=== PATIENT | male | born 2000 | race Caucasian/White ===

== ENCOUNTER 2021-07-04 12:36 | Emergency (ER) | payer OTHER ==
[2021-07-04 12:42] VITALS: BP 116/72
--- NOTE | 2021-07-04 13:14 | ED Physician Documentation ---
History of Present Illness - Stated complaint Stated Complaint: SOA,HEADACHE,COUGH - Chief complaint Chief Complaint: Resp - History obtained from History obtained from: Patient - Additonal information Additional information: 5 days illness with B ear pain, increased when swallowing, sore throat. Recent exposure to covid, roommate sick with this. Has non-productive cough. Review of Systems Constitutional: reports: Chills. denies: Myalgias Ears: reports: Ear pain Nose: reports: Rhinorrhea / runny nose Throat: reports: Sore throat Respiratory: reports: Cough. denies: Dyspnea PD PAST MEDICAL HISTORY - Present Medications Home Medications: Ambulatory Orders Medication Instructions Recorded Confirmed Albuterol Sulf [Ventolin Hfa 1 - 2 puffs INH Q4HR PRN #1 inhaler 07/04/21 Inhaler] guaiFENesin/CODEINE [Robitussin AC] 5 - 10 ml PO Q6H PRN #120 ml 07/04/21 PD ED PE NORMAL - Vitals Vital signs reviewed: Yes - General General: Alert and oriented X 3, No acute distress - HEENT HEENT: PERRL, EOMI, Pharynx benign, Other (Mild L conjunctivitis and mild L TM redness without effusion) - Neck Neck: Supple, no meningeal sign, No bony TTP - Cardiac Cardiac: RRR, No murmur - Respiratory Respiratory: No respiratory distress, Clear bilaterally - Abdomen Abdomen: Non tender - Back Back: No CVA TTP, No spinal TTP - Derm Derm: Normal color, Warm and dry - Extremities Extremities: No edema, No calf tenderness / cord - Neuro Neuro: Alert and oriented X 3, Normal speech Results - Vitals Vitals: Vital Signs - 24 hr 07/04/21 12:38 Temperature 36.7 C Heart Rate 84 Respiratory 18 Rate Blood Pressure 116/72 O2 Saturation 97 Oxygen O2 Source Room air PD MEDICAL DECISION MAKING - ED course ED course: 21-year-old gentleman with viral syndrome, has mild left-sided conjunctivitis and mild left TM redness without effusion. This is most consistent with adenovirus. He has been exposed to Covid though. Either way the syndrome is viral and he is treated symptomatically and tested for COVID. Departure - Departure Disposition: 01 Home, Self Care Clinical Impression: Upper respiratory tract infection Condition: Good Record reviewed to determine appropriate education?: Yes Instructions: ED Viral Syndrome Prescriptions: Albuterol Sulf [Ventolin Hfa Inhaler] 1 - 2 puffs INH Q4HR PRN #1 inhaler PRN Reason: Shortness Of Air/Wheezing guaiFENesin/CODEINE [Robitussin AC] 5 - 10 ml PO Q6H PRN #120 ml PRN Reason: Cough Comments: As discussed, based on your symptoms and physical findings I suspect you have adenovirus as opposed to Covid. I [facility] for albuterol inhaler [facility]. You have a Covid test pending. You need to self quarantine until the result is done and negative. Do not leave your house. Do not get near anybody. The results should be done in 48 to 72 hours. We will call with a positive result, the fastest way to get a negative result for confirmation though is to go to the hospital website at [email or web address], click on the my [facility] tab and sign up for the patient portal. If any friends or family get sick and would like to have a Covid test done, but do not have signs or symptoms that would necessitate being hospitalized, there are multiple local options for Covid testing. [facility] keeps an updated list of testing and vaccination options at: [email or web address].
== END 2021-07-04 13:34 | disposition home or self-care (01) ==
LOC: ED 12:36
DX: J06.9 Acute upper respiratory infection, unspecified (principal); Z20.822 Contact with and (suspected) exposure to COVID-19
CPT/HCPCS: 99282; 99283

== ENCOUNTER 2023-03-27 20:23 | Emergency (ER) | payer OTHER ==
[2023-03-27 20:34] VITALS: BP 128/69; O2SAT 98
--- NOTE | 2023-03-27 21:08 | ED Physician Documentation ---
History of Present Illness - Stated complaint Stated Complaint: BACK PX - Chief complaint Chief Complaint: Back Pain - History obtained from History obtained from: Patient - Additonal information Additional information: 23yM with pmh undiagnosed chronic back problems p/w mid to lower back pain today after working out then working in the [employer] yard today. denies numbness, weakness or tingling of extremities. denies specific injury PD PAST MEDICAL HISTORY - Past Medical History Past Medical History: No Cardiovascular: None Respiratory: None Neuro: None Endocrine/Autoimmune: None GI: None : None HEENT: None Psych: None Musculoskeletal: None Derm: None - Past Surgical History Past Surgical History: Yes Ortho: Other - Present Medications Home Medications: Ambulatory Orders Medication Instructions Recorded Confirmed No Known Home Medications 03/27/23 03/27/23 - Allergies Allergies/Adverse Reactions: Allergies Allergy/AdvReac Type Severity Reaction Status Date / Time No Known Drug Allergies Allergy Verified 03/27/23 20:34 - Social History Does the pt smoke?: No Smoking Status: Never smoker Does the pt drink ETOH?: Yes Does the pt have substance abuse?: No - Immunizations Immunizations are current?: Yes - POLST Patient has POLST: No PD ED PE NORMAL - Vitals Vital signs reviewed: Yes - General General: Alert and oriented X 3, No acute distress, Well developed/nourished - HEENT HEENT: Atraumatic, PERRL, EOMI - Neck Neck: No bony TTP - Back Back: No spinal TTP, Other (BL midthoracic and lower thoracic back ttp in paraspinal distribution) - Derm Derm: Normal color, Warm and dry - Extremities Extremities: Other (CSM intact BL LE) - Psych Psych: Normal mood, Normal affect Results - Vitals Vitals: Vital Signs - 24 hr 03/27/23 20:28 Temperature 36.0 C L Heart Rate 72 Respiratory 17 Rate Blood Pressure 128/69 O2 Saturation 98 Oxygen O2 Source Room air PD Medical Decision Making - ED course ED course: 23yM presents to the ED with midto lower back pain s/p workout today followed by heavy lifting while working for the [employer]. patient took tylenol without relief at home. no fnd and exam is c/w muscle strain. IM toradol provided with improvement. return precautions given. symptomatic care discussed. Departure - Departure Disposition: 01 Home, Self Care Clinical Impression: Back pain Condition: Good Instructions: ED Low Back Pain Injury Comments: you were seen in the emergency department for back pain. Take ibuprofen 600mg every 6 hours as needed for pain with a snack or meal. Please follow-up with your primary care provider and return to the emergency department if you have any new or worsening symptoms or other concerns.
[2023-03-27] MEDS: KETOROLAC 30 MG/ML VIAL IM STA (21:10)
== END 2023-03-27 21:17 | disposition home or self-care (01) ==
LOC: ED 20:23
DX: M54.50 Low back pain, unspecified (principal); M54.6 Pain in thoracic spine; X50.0XXA Overexertion from strenuous movement or load, initial encounter; Y93.89 Activity, other specified
CPT/HCPCS: 96372; 99283